=== PATIENT | male | born 1950 | race Two or more races ===

== ENCOUNTER 2023-03-14 07:22 | Inpatient (IN) | payer OTHER ==
[~2023-03-14] VITALS: Ht 175.3 cm; Wt 87.5 kg
[2023-03-14] MEDS ORDERED: ceFAZolin 1GM/50ML 100 ML IV ONE (07:31)
[2023-03-14] MEDS ORDERED: ACETAMINOPHEN IV 1000 MG/100ML (10MG/ML) IV ONE (07:45)
[2023-03-14] MEDS ORDERED: KETAMINE 50mg/ML 10ml Vial (500mg/10ml) IV ONE (07:45)
[2023-03-14] MEDS ORDERED: CELECOXIB 100 MG CAP PO ONE (07:45)
[2023-03-14] MEDS ORDERED: PREGABALIN CAPSULE 75 MG CAP PO ONE (07:45)
[2023-03-14] MEDS ORDERED: GLYCOPYRROLATE 0.2 MG/ML 1ML VIAL ONE (07:47)
[2023-03-14] MEDS ORDERED: PROPOFOL 10 MG/ML 20 ML IV ONE ×4 (07:47→11:02)
[2023-03-14] MEDS ORDERED: ONDANSETRON HCL 4 MG/2 ML VIAL ONE (07:47)
[2023-03-14] MEDS ORDERED: KETOROLAC TROMETH 30 MG/ML 1ML VIAL ONE ×2 (07:48→08:08)
[2023-03-14] MEDS ORDERED: DexAMETHasone SOD PHOS 10MG/1ML VIAL INJ ONE (07:48)
[2023-03-14] MEDS ORDERED: MORPHINE SULF PF 5 MG/10 ML VIAL ONE (08:08)
[2023-03-14] MEDS ORDERED: PREGABALIN CAPSULE 75 MG CAP ONE (08:10)
[2023-03-14] MEDS ORDERED: TRANEXAMIC ACID 20 ML ONE (08:10)
[2023-03-14] MEDS ORDERED: VANCOMYCIN HCL 1000 MG VL ONE (08:11)
[2023-03-14] MEDS ORDERED: BUPIVACAINE W/ EPINEPH 0.25% INJ 50ML MDV ONE (08:18)
[2023-03-14] MEDS ORDERED: DexAMETHasone SOD PHOS 4 MG/1ML SDV INJ ONE (08:18)
[2023-03-14] MEDS ORDERED: SODIUM CHLORIDE LOCK 10 ML ONE (09:30)
[2023-03-14] MEDS ORDERED: ePHEDrine SULFATE 50 MG/ML AMP ONE (09:30)
[2023-03-14] MEDS ORDERED: MORPHINE SULFATE INJ 2 MG/ml SYRG IV PRN (10:30)
[2023-03-14] MEDS ORDERED: ACETAMINOPHEN 325 MG TAB PO PRN (10:30)
[2023-03-14] MEDS ORDERED: ONDANSETRON HCL 4 MG/2 ML VIAL IV PRN (10:30)
[2023-03-14] MEDS ORDERED: NITROGLYCERIN 0.4 MG SL TAB SL PRN (10:30)
[2023-03-14] MEDS ORDERED: OXYCODONE W/ ACETAMINOPHEN 5/325MG TABLET PO PRN (10:30)
[2023-03-14] MEDS ORDERED: ceFAZolin 1GM/50ML 50 ML IV SCH ×2 (10:30→14:15)
[2023-03-14] MEDS ORDERED: HYDROmorphone HCL 2 MG/ML VL/or syr IV PRN (10:30)
[2023-03-14] MEDS: LACTATED RINGER'S 1,000 ML IV SCH ×2 (11:30→20:43)
[2023-03-14] MEDS: ceFAZolin 1GM/50ML 50 ML IV SCH ×2 (15:01→21:40)
[2023-03-14 17:55] VITALS: BP 153/79
[2023-03-14] MEDS ORDERED: DICL75TA3 PO (18:36)
[2023-03-14] MEDS ORDERED: IBUP-1678 PO (18:36)
[2023-03-14] MEDS ORDERED: CHOL20007 PO (18:36)
[2023-03-14] MEDS ORDERED: LATA1POW XX (18:36)
[2023-03-14] MEDS ORDERED: GEMF-66 PO (18:36)
[2023-03-14] MEDS ORDERED: LATA0.008 EACHEYE (18:36)
[2023-03-14] MEDS: IBUPROFEN 800 MG TAB PO SCH ×2 (21:41→22:10)
[2023-03-14] MEDS: GEMFIBROZIL 600 MG TAB PO SCH (21:41)
[2023-03-14] MEDS: DOCUSATE SOD 100 MG CAP PO SCH (21:41)
[2023-03-14] MEDS: amLODIPine BESYLATE 5 MG TAB PO SCH (21:42)
[2023-03-14 22:00] VITALS: BP 118/69
[2023-03-14] MEDS ORDERED: LATANOPROST 0.005 % OPTH(EYE) SOL 2.5ML EACHEYE SCH (22:00)
[2023-03-14] MEDS: SODIUM CHLOR 0.9% PF (SALINE LOCK) 10ML VIAL/SYR IV SCH (22:10)
[2023-03-15] MEDS: ceFAZolin 1GM/50ML 50 ML IV SCH (03:42)
[2023-03-15 05:00] VITALS: BP 100/52
[2023-03-15] MEDS: IBUPROFEN 800 MG TAB PO SCH ×2 (05:35→14:10)
[2023-03-15] MEDS: SODIUM CHLOR 0.9% PF (SALINE LOCK) 10ML VIAL/SYR IV SCH ×2 (05:36→10:22)
[2023-03-15] MEDS: LACTATED RINGER'S 1,000 ML IV SCH (05:40)
[2023-03-15 06:38] LABS: Hematocrit 41.3 % (41.0-53.0); Hemoglobin 14.2 g/dL (13.5-17.5)
[2023-03-15 06:50] LABS: Potassium 4.1 mmol/L (3.5-5.1)
[2023-03-15 06:55] LABS: BUN/Creatinine Ratio 20.8 (10.0-20.0); Calcium 8.6 mg/dL (8.5-10.1)
[2023-03-15 07:50] VITALS: BP 116/59
[2023-03-15 08:00] VITALS: BP 116/59
[2023-03-15] MEDS ORDERED: CHOLECALCIFEROL (VITD3) 2,000 UNIT CAP/TAB PO SCH (10:00)
[2023-03-15] MEDS ORDERED: ENOXAPARIN SOD 40 MG/0.4 ML SYRINGE SC SCH (10:00)
[2023-03-15] MEDS ORDERED: PANTOPRAZOLE 40 MG TAB PO SCH (10:00)
[2023-03-15] MEDS: GEMFIBROZIL 600 MG TAB PO SCH (10:21)
[2023-03-15] MEDS: DOCUSATE SOD 100 MG CAP PO SCH (10:22)
[2023-03-15] MEDS: amLODIPine BESYLATE 5 MG TAB PO SCH (10:22)
[2023-03-15 11:23] VITALS: BP 116/59
[2023-03-15 12:00] VITALS: BP 109/63
== END 2023-03-15 14:45 | disposition home health service (06) | DRG 470 ==
LOC: SUR 07:22 → OVERFLOW 10:34 → CENTRAL 16:10
PROVIDERS: ADMIT Orthopaedic Surgery Adult Reconstructive Orthopaedic Surgery; ATTEND Orthopaedic Surgery Adult Reconstructive Orthopaedic Surgery
PROC: 0SRC0J9 Replacement of Right Knee Joint with Synthetic Substitute, Cemented, Open Approach (ICD-10-PCS; principal; 2023-03-15)
PROC: 8E0YXBZ Computer Assisted Procedure of Lower Extremity (ICD-10-PCS; 2023-03-15)
DX: M17.11 Unilateral primary osteoarthritis, right knee (principal); E55.9 Vitamin D deficiency, unspecified; E78.5 Hyperlipidemia, unspecified; Z96.651 Presence of right artificial knee joint; Z80.1 Family history of malignant neoplasm of trachea, bronchus and lung; Z80.3 Family history of malignant neoplasm of breast; Z82.0 Family history of epilepsy and other diseases of the nervous system
CPT/HCPCS: 36415; 73562; 80048; 85014; 85018; 86850; 86900; 86901; 97163; G0378; J0131; J0690; J1100; J1885; J2405; J2704